=== PATIENT | female | born 1950 | race Caucasian/White ===

== ENCOUNTER 2022-01-25 12:33 | Outpatient (CLI) | payer MEDICARE ==
[2022-01-25] MEDS ORDERED: Magnevist 469MG/ML 20 ML VIAL ONE (12:56)
== END 2022-01-25 12:34 | disposition home or self-care (01) ==
LOC: CSHCP 12:33
PROVIDERS: ATTEND Internal Medicine Hematology & Oncology
DX: C34.02 Malignant neoplasm of left main bronchus (principal); Z79.899 Other long term (current) drug therapy; R90.89 Other abnormal findings on diagnostic imaging of central nervous system; G93.89 Other specified disorders of brain
CPT/HCPCS: 70553; 94010; 94726; 94729; 94760; A9579